=== PATIENT | female | born 1985 | race Caucasian/White ===

== ENCOUNTER 2019-06-02 14:22 | Day surgery (SDC) | payer BC ==
[2019-05-30 14:42] LABS: Basophils # (auto) 0 uL; Basophils % (auto) 0.4 % (0.0-2.0); Eosinophils # (auto) 0.1 uL; Eosinophils % (auto) 1.8 % (0.0-7.0); Hematocrit 42.6 % (36.0-46.0); Hemoglobin 14.4 g/dL (12.2-16.2); Lymphocytes # (auto) 1.7 uL; Lymphocytes % (auto) 24.9 % (10.0-50.0); Mean Corpuscular Hemoglobin 32.3 pg (28.0-32.0); Mean Corpuscular Hgb Conc. 33.8 g/dL (32.0-36.0); Mean Corpuscular Volume 95.7 fL (80.0-100.0); Monocytes # (auto) 0.4 uL; Monocytes % (auto) 5.4 % (0.0-12.0); Neutrophils # (auto) 4.7 uL; Neutrophils % (auto) 67.5 % (37.0-80.0); Platelet Count (auto) 233 10^3/uL (140-450); Red Blood Cells 4.45 10^6/uL (4.0-5.20); Red Cell Distribution Width 13.1 % (11.8-14.3)
[2019-05-30 14:49] LABS: Urine Bacteria FEW /hpf (None Seen); Urine Blood Negative /uL (Negative); Urine Mucus FEW (None Seen); Urine Specific Gravity 1.014 (1.001-1.035); Urine WBC 1 /hpf (0 - 5)
[2019-05-30 15:00] LABS: INR 0.96 (0.9-1.15); Partial Thromboplastin Time 27.6 sec (23.64-32.05)
[2019-05-30 15:46] LABS: Calcium 8.9 mg/dL (8.5-10.1); Potassium 3.9 mmol/L (3.5-5.1)
[2019-05-30 15:51] LABS: BUN/Creatinine Ratio 10.3; Bilirubin, Total 0.5 mg/dL (0.2-1.0); Total Protein 7.1 g/dL (6.4-8.2)
[~2019-06-02] VITALS: Ht 165.1 cm; Wt 72.6 kg
[2019-06-02] MEDS ORDERED: ceFAZolin 1GM/50ML 100 ML IV ONE (15:08)
[2019-06-02] MEDS ORDERED: ceFAZolin 1GM/50ML 50 ML IV ONE (15:09)
[2019-06-02] MEDS ORDERED: LIDOCAINE W/ EPINEPHRINE 1 % INJ 30ML ONE (16:37)
[2019-06-02] MEDS ORDERED: BUPIVACAINE 0.25% INJ 50ML VIAL ONE (16:37)
[2019-06-02] MEDS ORDERED: NEOSTIGMINE 1 MG/ML INJ (10mg/10ML VIAL) IV ONE (16:41)
[2019-06-02] MEDS ORDERED: GLYCOPYRROLATE 0.2 MG/ML 1ML VIAL IV ONE (16:41)
[2019-06-02] MEDS ORDERED: ROCURONIUM 10MG/ML 10ML VIAL IV ONE (16:41)
[2019-06-02] MEDS ORDERED: MEPERIDINE HCL (25 MG/ML) 1ML VIAL ONE (16:46)
[2019-06-02] MEDS ORDERED: MIDAZOLAM HCL 1MG/1ML-2 ML VIAL ONE (16:46)
[2019-06-02] MEDS ORDERED: fentaNYL CITRATE 100 MCG/2 ML VL ONE (16:46)
[2019-06-02] MEDS ORDERED: ONDANSETRON HCL 4 MG/2 ML VIAL IV PRN (17:00)
[2019-06-02] MEDS ORDERED: DexAMETHasone SOD PHOS 10MG/1ML VIAL INJ ONE (17:17)
[2019-06-02] MEDS ORDERED: KETOROLAC TROMETH 30 MG/ML 1ML VIAL ONE (17:17)
[2019-06-02] MEDS ORDERED: PROPOFOL 10 MG/ML 20 ML IV ONE (17:17)
[2019-06-02] MEDS ORDERED: HYDROmorphone HCL 2 MG/ML VL IV PRN (17:45)
[2019-06-02] MEDS ORDERED: ePHEDrine SULFATE 50 MG/ML AMP IV PRN (17:45)
[2019-06-02] MEDS ORDERED: KETOROLAC TROMETH 15 mg/ml 1ML VL IV ONE (17:45)
[2019-06-02] MEDS ORDERED: LABETALOL HCL 5 MG/ML 4ML SYRINGE IV PRN (17:45)
[2019-06-02] MEDS ORDERED: ACCU-CHEK COMFORT CURVE STRIP VI ONE (17:45)
[2019-06-02] MEDS ORDERED: ONDANSETRON HCL 4 MG/2 ML VIAL IV ONE (17:45)
[2019-06-02] MEDS ORDERED: MIDAZOLAM HCL 1MG/1ML-2 ML VIAL IV PRN (17:45)
[2019-06-02] MEDS ORDERED: MORPHINE SULFATE 4 MG/ML SYR/VIAL IV ONE (18:00)
[2019-06-02 18:41] VITALS: BP 103/71
== END 2019-06-02 18:47 | disposition home or self-care (01) ==
LOC: SUR 14:22
PROVIDERS: ATTEND Obstetrics & Gynecology
DX: N80.3 Endometriosis of pelvic peritoneum (principal); I10 Essential (primary) hypertension; M79.9 Soft tissue disorder, unspecified; G89.29 Other chronic pain
CPT/HCPCS: 36415; 58662; 80053; 81001; 82962; 84702; 85025; 85610; 85730; 86850; 86900; 86901; 87086; 88300; J0690; J1100; J1170; J1885; J2001; J2175; J2250; J2405; J2704; J3010; J3490; J7030